=== PATIENT | male | born 1975 ===

== ENCOUNTER 2017-08-16 09:24 | Emergency (ER) | payer MEDICAID ==
[2017-08-16 09:28] VITALS: BP 139/86; PULSE 100; TEMP 97; O2SAT 98; BMI 29.9
[2017-08-16 09:42] VITALS: RESP 18
--- NOTE | 2017-08-16 09:58 | ED PDOC ---
HPI: CCC, URI, Sore Throat Time Seen by Provider: 08/16/17 09:37 Chief Complaint (Nursing): ENT Problem Chief Complaint (Provider): Sore Throat History Per: Patient History/Exam Limitations: no limitations Onset/Duration Of Symptoms: Days (x3) Current Symptoms Are (Timing): Still Present Additional Complaint(s): Chevy Cage is a 41 year old male with a past medical history of sciatica presenting to the ED for an evaluation of sore throat occurring for 3 days prior to arrival. The patient states the pain is more on the left side of his throat, radiating to his left ear. He also states associated cold sweats and a cough. The patient has taken Ibuprofen 3 times yesterday, but has not taken any medications today prior to arrival. He denies congestion, chest pain, shortness of breath, belly pains, weakness, numbness, or any sick contacts. No neck pain or headache. Able to swallow with pain. PMD: Non [facility] Provider, in [place] Past Medical History Reviewed: Historical Data, Nursing Documentation, Vital Signs Vital Signs: Last Vital Signs Temp 97 F L 08/16/17 09:39 Pulse 100 H 08/16/17 09:39 Resp 18 08/16/17 09:39 BP 139/86 08/16/17 09:39 Pulse Ox 98 08/16/17 10:00 - Medical History Other PMH: sciatica - Family History Family History: States: Unknown Family Hx - Social History Current smoker - smoking cessation education provided: Yes Alcohol: Social Drugs: Denies - Home Medications Home Medications: Ambulatory Orders Medication Instructions Recorded Azithromycin [Zithromax] 500 mg PO DAILY 5 Days tab 08/16/17 Ibuprofen [Motrin] 600 mg PO TID 7 Days tab 08/16/17 - Allergies Allergies/Adverse Reactions: Allergies Allergy/AdvReac Type Severity Reaction Status Date / Time No Known Allergies Allergy Verified 08/16/17 09:38 Review of Systems ROS Statement: Except As Marked, All Systems Reviewed And Found Negative Constitutional: Positive for: Sweats (cold sweats) ENT: Positive for: Ear Pain (left ear pain), Throat Pain Cardiovascular: Negative for: Chest Pain Respiratory: Positive for: Cough. Negative for: Shortness of Breath Gastrointestinal: Negative for: Abdominal Pain Neurological: Negative for: Weakness, Numbness Physical Exam - Reviewed Nursing Documentation Reviewed: Yes Vital Signs Reviewed: Yes - Physical Exam Appears: Positive for: Non-toxic, No Acute Distress Head Exam: Positive for: ATRAUMATIC, NORMOCEPHALIC Skin: Positive for: Normal Color, Warm, Dry Eye Exam: Positive for: Normal appearance, EOMI, PERRL ENT: Positive for: TM Is/Are (clear b/l), Pharyngeal Erythema (mild erythema to left side). Negative for: Tonsillar Exudate, Other (no uvula deviation; no peritonsillar enlargement ) Neck: Positive for: Normal, Painless ROM, Supple Cardiovascular/Chest: Positive for: Regular Rate, Rhythm, Chest Non Tender Respiratory: Positive for: Normal Breath Sounds. Negative for: Respiratory Distress Gastrointestinal/Abdominal: Positive for: Normal Exam, Soft. Negative for: Tenderness Back: Positive for: Normal Inspection. Negative for: L CVA Tenderness, R CVA Tenderness Extremity: Positive for: Normal ROM. Negative for: Tenderness, Deformity Neurologic/Psych: Positive for: Alert, Oriented (x3). Negative for: Motor/ Sensory Deficits - ECG O2 Sat by Pulse Oximetry: 98 Pulse Ox Interpretation: Normal - Progress ED Course And Treament: 1120: Feels better. Will rx antibiotics for pharyngitis. Pt. to return if increased pain, not getting better, does not feel right, not able to swallow. AAOx3. Tolerated PO today. Medical Decision Making Medical Decision Making: Time: 09:37 Impression: Sore throat radiating to left ear Plan: * Toradol 15 mg IM * Rapid Strep Group A Antigen * Reevaluation Scribe Attestation: Documented by Debbie Baird, acting as a scribe for Avelino Sarah MD. Provider Scribe Attestation: All medical record entries made by the Scribe were at my direction and personally dictated by me. I have reviewed the chart and agree that the record accurately reflects my personal performance of the history, physical exam, medical decision making, and the department course for this patient. I have also personally directed, reviewed, and agree with the discharge instructions and disposition. Disposition - Clinical Impression Clinical Impression: Pharyngitis - Patient ED Disposition Is Patient to be Admitted: No Counseled Patient/Family Regarding: Studies Performed, Diagnosis, Need For Followup, Rx Given - Disposition Referrals: [facility] [Outside] - 08/17/17 [facility] [place] [facility] [Outside] Disposition: Routine/Home Disposition Time: 11:23 Condition: STABLE Additional Instructions: Return if not better in 3 days. Prescriptions: Azithromycin [Zithromax] 500 mg PO DAILY 5 Days tab Ibuprofen [Motrin] 600 mg PO TID 7 Days tab Instructions: Pharyngitis (ED) Forms: [employer] (Tajik)
== END 2017-08-16 11:33 | disposition home or self-care (01) ==
LOC: H.ER 09:24
DX: J02.9 Acute pharyngitis, unspecified (principal)
CPT/HCPCS: 87070; 87430; 96372; 99282; J1885

== ENCOUNTER 2019-01-29 10:12 | Emergency (ER) | payer MEDICAID ==
[2019-01-29 10:30] VITALS: TEMP 97.7; O2SAT 98
[2019-01-29 10:31] VITALS: BMI 32.6
[2019-01-29] MEDS ORDERED: Lidocaine 5% Patch TD STA (10:59)
--- NOTE | 2019-01-29 11:20 | ED PDOC ---
HPI: Back Time Seen by Provider: 01/29/19 10:35 Chief Complaint (Nursing): Back Pain History Per: Patient, Family () Additional Complaint(s): Pt. states on Monday evening he tripped and fell injuring the L side of his lower back. Reports he thinks he may have struck the area of pain against his sofa. States he does have a hx of low back problems and takes naproxen/"muscle relaxer" intermittently for pain. He was self medicating with the meds without any relief. Last dose of meds was taken at 0130 today. Pain is worse with movement, deep breathing, and coughing. Pain is slightly alleviated when he is sitting up right. Denies dysuria, hematuria, incontinence, fever, chills, abdominal pain, N/V/D, weakness, numbness, tingling, rash. Pt. reports he is not on HTN meds but has been told in the past my his PMD that he does have HTN which is to be treated with exercise and diet. Past Medical History Reviewed: Historical Data, Nursing Documentation, Vital Signs Vital Signs: Last Vital Signs Temp 97.7 F 01/29/19 10:29 Pulse 84 01/29/19 10:29 Resp BP 203/113 H 01/29/19 10:29 Pulse Ox 98 01/29/19 10:29 - Medical History PMH: Back Problems, HTN, Hypercholesterolemia - Surgical History Surgical History: No Surg Hx - Family History Family History: States: No Known Family Hx - Home Medications Home Medications: Ambulatory Orders Medication Instructions Recorded Azithromycin [Zithromax] 500 mg PO DAILY 5 Days tab 08/16/17 Ibuprofen [Motrin] 600 mg PO TID 7 Days tab 08/16/17 Lidocaine 5% [Lidoderm] 1 ea TD DAILY PRN #10 patch 01/29/19 Meloxicam [Mobic] 15 mg PO DAILY PRN #10 tab 01/29/19 diaZEpam [Valium] 10 mg PO ONCE PRN #12 tab 01/29/19 - Allergies Allergies/Adverse Reactions: Allergies Allergy/AdvReac Type Severity Reaction Status Date / Time No Known Allergies Allergy Verified 08/16/17 09:38 Review of Systems ROS Statement: Except As Marked, All Systems Reviewed And Found Negative Musculoskeletal: Positive for: Back Pain Physical Exam - Physical Exam Appears: Positive for: Well, Non-toxic, Uncomfortable, In Acute Distress (painful distress) Skin: Positive for: Normal Color, Warm. Negative for: Rash Eye Exam: Positive for: Normal appearance Cardiovascular/Chest: Positive for: Regular Rate, Rhythm Respiratory: Positive for: Normal Breath Sounds. Negative for: Respiratory Distress Gastrointestinal/Abdominal: Positive for: Normal Exam, Soft. Negative for: Tenderness Back: Positive for: Normal Inspection, R CVA Tenderness, Muscle Spasm (L sided paralumbar tenderness). Negative for: L CVA Tenderness, Vertebral Tenderness Extremity: Positive for: Other (b/l lower extremity strenght 5/5) Neurological/Psych: Positive for: Awake, Alert, Oriented (x3), Gait (slow, steady, unassisted) - Laboratory Results Result Diagrams: 01/29/19 11:37 01/29/19 11:37 - ECG ECG: Positive for: Interpreted By Me ECG Rhythm: Positive for: Sinus Rhythm. Negative for: ST/T Changes Rate: 75 O2 Sat by Pulse Oximetry: 98 - Radiology X-Ray: Read By Radiologist (LS spine x-ray) X-Ray Interpretation: No Acute Disease - Progress ED Course And Treament: Labs, EKG, toradol 30mg IV, valium 10mg PO, lidoderm patch ordered. 1240 On re-evaluation, pt. looks more relaxed. Pt. states pain is still present but has improved. 1310 Repeat BP: 157/98. Advised to f/u with PMD for further evaluation but is to return to ED immediately if symptoms worsen. Both pt. and verbalized correct understanding of plan and care. Informed of all results. Agrees with plan and care. Disposition - Clinical Impression Clinical Impression: Low back pain - Disposition Referrals: [facility] [Outside] Disposition Time: 13:10 Condition: IMPROVED Additional Instructions: FOLLOW UP WITH YOUR DOCTOR FOR FURTHER EVALUATION RETURN TO ED IMMEDIATELY IF SYMPTOMS WORSEN HEATHER RICHTER, thank you for letting us take care of you today. Your provider was Rahul Burt MD and you were treated for BACK PAIN. The emergency medical care you received today was directed at your acute symptoms. If you were prescribed any medication, please fill it and take as directed. It may take several days for your symptoms to resolve. Return to the Emergency Department if your symptoms worsen, do not improve, or if you have any other problems. Please contact your doctor or call one of the physicians/clinics you have been referred to that are listed on the Patient Visit Information form that is included in your discharge packet. Bring any paperwork you were given at dis charge with you along with any medications you are taking to your follow up visit. Our treatment cannot replace ongoing medical care by a primary care provider outside of the emergency department. Thank you for allowing the [facility] team to be part of your care today. If you had an X-Ray or CT scan: A Radiologist will review the ED reading if any change in treatment is needed we will contact you. If you had a blood, urine, or wound culture: It will take several days for the results, if any change in treatment is needed we will contact you. If you had an STI test: It will take 48 hours for the results. Please call after 1 week if you have not heard back. Prescriptions: diaZEpam [Valium] 10 mg PO ONCE PRN #12 tab PRN Reason: Muscle Relaxer Lidocaine 5% [Lidoderm] 1 ea TD DAILY PRN #10 patch PRN Reason: Pain Meloxicam [Mobic] 15 mg PO DAILY PRN #10 tab PRN Reason: Pain Instructions: DASH Diet, Low Back Pain (DC) Forms: [employer] (Mosotho) Print Language: TURKISH
[2019-01-29] MEDS ORDERED: Lidocaine 5% Patch TD ONE (11:28)
[2019-01-29 11:50] LABS: BASO % 0.9 % (0.0-2.0); EOS # 0.1 K/uL (0.0-0.7); EOS % 2.4 % (0.0-4.0); HEMOGLOBIN 15.4 g/dL (12.0-18.0); LYMPH # 1.4 K/uL (1.0-4.3); LYMPH % 27.4 % (20.0-40.0); MEAN CELL VOLUME 96.1 fl (80.0-94.0); MEAN CORPUSCULAR HEMOGLOBIN 32.2 pg (27.0-31.0); MEAN CORPUSCULAR HGB CONC 33.5 g/dL (33.0-37.0); MEAN PLATELET VOLUME 9.7 fl (7.2-11.7); MONO # 0.6 K/uL (0.0-0.8); MONO % 11.8 % (0.0-10.0); NEUT # 2.9 K/uL (1.8-7.0); NEUT % 57.5 % (50.0-75.0); NRBC % 0.2 % (0.0-0.0); RBC 4.79 Mil/uL (4.40-5.90); RED CELL DISTRIBUTION WIDTH 15.8 % (11.5-14.5)
[2019-01-29 12:12] LABS: ALB/GLOB RATIO 1.2 (1.0-2.1); ALBUMIN 4.7 g/dL (3.5-5.0); ALT/SGPT 104 U/L (21-72); AST/SGOT 60 U/L (17-59); BLOOD UREA NITROGEN 12 mg/dl (9-20); GFR NON-AFRICAN AMERICAN > 60
--- NOTE | 2019-01-29 12:25 | RAD ---
Date of service: For 01/29/2019 PROCEDURE: Radiographs of the Lumbar Spine. HISTORY: fall COMPARISON: No prior. TECHNIQUE: 5 views obtained. FINDINGS: BONES: There is normal alignment of the lumbar vertebral bodies. There is normal lumbar lordosis. There is no acute fracture, spondylolysis or spondylolisthesis. Bone mineralization is normal. There is lumbarization of the S1 vertebral body. DISC SPACES: Mild degenerative disc disease at S1-2 and L5-S1. OTHER FINDINGS: None. IMPRESSION: No acute fracture, spondylolysis or spondylolisthesis.
[2019-01-29 12:40] LABS: BARBITURATES, UR NEGATIVE (NEGATIVE); BENZODIAZEPINES, UR NEGATIVE (NEGATIVE); OPIATES, UR NEGATIVE (NEGATIVE); PHENCYCLIDINE, UR NEGATIVE (NEGATIVE)
[2019-01-29 13:14] VITALS: BP 157/98; RESP 20
[2019-01-29 13:45] VITALS: PULSE 75
[2019-01-29 13:56] LABS: URINE AMORPHOUS SEDIMENT FEW /ul (<OCC); URINE BACTERIA OCC (<OCC); URINE BILIRUBIN NEGATIVE (NEGATIVE); URINE BLOOD NEGATIVE (NEGATIVE); URINE COLOR YELLOW (YELLOW); URINE GLUCOSE (UA) NEG (NEGATIVE); URINE LEUKOCYTE ESTERASE NEG Leu/uL (Negative); URINE PROTEIN 30 mg/dL (NEGATIVE)
[2019-01-29 13:58] LABS: URINE CLARITY CLOUDY (Clear); URINE UROBILINOGEN 0.2-1.0 mg/dL (0.2-1.0)
--- NOTE | 2019-01-29 15:31 | CARD ---
APPROVED REPORT Date of service: 01/29/2019 EKG Measurement Heart [id number] <Conclusion> Normal sinus rhythm Normal ECG
== END 2019-01-29 13:13 | disposition home or self-care (01) ==
LOC: H.ER 10:12
DX: M54.5 Low back pain (principal)
CPT/HCPCS: 72100; 80053; 80324; 80345; 80346; 80349; 80353; 80358; 80361; 81003; 83992; 85025; 93005; 96374; 99284; J1885